=== PATIENT | male | born 1990 | race Caucasian/White ===

== ENCOUNTER 2017-07-27 16:45 | Emergency (ER) | payer SELFPAY ==
[~2017-07-27] VITALS: Ht 170.2 cm; Wt 68.0 kg
[2017-07-27 18:01] VITALS: Ht 170.2 cm; Wt 68.0 kg
[2017-07-27 19:22] VITALS: BP 115/88
== END 2017-07-27 19:22 | disposition home or self-care (01) ==
LOC: ED 16:45
DX: S39.012A Strain of muscle, fascia and tendon of lower back, initial encounter (principal); X50.0XXA Overexertion from strenuous movement or load, initial encounter; Y93.89 Activity, other specified; Y92.89 Other specified places as the place of occurrence of the external cause; Y99.8 Other external cause status
CPT/HCPCS: J1885